=== PATIENT | male | born 1930 | race Caucasian/White ===

== ENCOUNTER 2017-03-04 21:57 | Inpatient (IN) | payer OTHER, MEDICARE ==
--- NOTE | 2017-03-04 22:11 | PDOC ---
History of Present Illness - General Chief Complaint: Pain, Acute Stated Complaint: ABDOMINAL PAIN/HERNIA Time Seen by Provider: 03/04/17 22:00 History Source: Patient Exam Limitations: No Limitations - History of Present Illness Initial Comments: 03/04/17 22:11 This is an 87-year-old male brought in by his daughter for evaluation of abdominal pain. Patient has a history of a left inguinal hernia. Patient said the hernia is normally reducible and when he goes to bed at night it spontaneously reduces however 2 days ago it did not spontaneously reduce and has gotten more painful and uncomfortable. Patient denies any fevers or chills. He denies any nausea vomiting or diarrhea. Patients last bowel movement was today and he said it was normal. PAST MEDICAL HISTORY: Hypertension, high cholesterol, PAST SURGICAL HISTORY: no significant history FAMILY HISTORY: no pertinant history SOCIAL HISTORY: Pt lives alone and is retired MEDICATIONS: reviewed ALLERGIES: As per nursing notes Review of Systems General: No fevers or chills, no weakness, no weight loss HEENT: No change in vision. No sore throat,. No ear pain CardioVascular: No chest pain or shortness of breath Respiratory:No cough, or wheezing. Gastrointestinal: Abdominal pain, hernia Genitourinary: No dysuria, hematuria, or frequency Musculoskeletal: No joint or muscle pain or swelling Neurologic: No headache, vertigo, dizziness or loss of consciousness Psychiatric: nor depression Skin: No rashes or easy bruising Endocrine: no increased thirst or abnormal weight change Allergic: no skin or latex allergy All other systems reviewed and normal Exam: General: Well-nourished well-developed individual, no acute distress HEENT: Throat: Normal, tonsils normal, no erythema or exudate Neck: Supple, no meningeal signs, no lymphadenopathy Eyes::Pupils equal reactive and round, extraocular motion intact Chest: Nontender to palpation Cardiac: S1-S2 normal, regular rate and rhythm, no murmurs rubs or gallops Respiratory: Lungs clear to auscultation bilateral Abdomen: Soft, nondistended, normal bowel sounds, nontender to palpation diffusely There is a large nonreducible tender hernia in the right inguinal area. Extremities: Warm, dry, no cyanosis, clubbing, or edema Skin: No rashes Neuro: Alert and oriented x3, nonfocal exam, grossly intact, normal gait Psych: Normal mood and affect 03/05/17 01:00 Chest x-ray shows pacemaker otherwise no acute pathology Abdominal flat and upright shows some dilated loops of bowel in the right lower quadrant with some air-fluid levels CAT scan shows small bowel obstruction secondary to the umbilical hernia Assessment and plan: This is an 87-year-old male who comes in complaining of abdominal pain and a hernia that is not reducible 2 days. Attempted to reduce the hernia without success Workup shows a small bowel obstruction secondary to the hernia Patient admitted to the hospital hospitalist service as he is a patient of Dr. Perez's. Patient's surgeon is Jamie however Dr. Manzanares was covering. Dr. Barbosa ordered a NG tube however patient refused NG tube Past History - Past Medical History Allergies/Adverse Reactions: Allergies Allergy/AdvReac Type Severity Reaction Status Date / Time No Known Drug Allergies Allergy Verified 03/19/16 08:44 Home Medications: Ambulatory Orders Rosuvastatin Calcium [Crestor] 5 mg PO HS 06/28/14 Apixaban [Eliquis -] 5 mg PO BID tablet 10/20/14 Cyanocobalamin (Vitamin B-12) [Vitamin B-12] 1,000 mcg PO DAILY tablet Enalapril Maleate 5 mg PO DAILY tablet 10/20/14 Cholecalciferol (Vitamin D3) [Vitamin D3] 2,000 unit PO DAILY tablet 09/23/15 Aspirin [Ecotrin] 81 mg PO DAILY 03/04/17 Cancer: (basal cell carcinoma) Cardiac Disorders: Yes (rheumatic fever as a child) CVA: Yes (RT EYE BLIND,OCULAR STROKE) HTN: Yes Hypercholesterolemia: Yes - Surgical History Cardiac Surgery: Yes (triple bypss, 3 stents, pacemaker) - Psycho/Social/Smoking Cessation Hx Anxiety: No Suicidal Ideation: No Smoking Status: Yes Smoking History: Former smoker Have you smoked in the past 12 months: No Number of Cigarettes Smoked Daily: 0 If you are a former smoker, when did you quit?: 40 YEARS AGO Hx Alcohol Use: No Drug/Substance Use Hx: No Substance Use Type: None Hx Substance Use Treatment: No ED Treatment Course - LABORATORY CBC & Chemistry Diagram: 03/04/17 22:13 03/04/17 22:13 *DC/Admit/Observation/Transfer Diagnosis at time of Disposition: Small bowel obstruction, Incarcerated left inguinal hernia - Discharge Dispostion Condition at time of disposition: Stable Admit: Yes
[2017-03-04 22:22] LABS: BASOPHIL 1.4 % (0-2.0); EOSINOPHIL 9.7 % (0-4.5); MEAN CELL VOLUME 91.3 fl (80-96); MEAN PLT VOLUME 8.9 fl (7.5-11.1); NEUTROPHILS 55.4 % (42.8-82.8); PLATELET COUNT 163 K/MM3 (134-434); RDW 14.5 % (11.9-15.9); WHITE BLOOD COUNT 6.5 K/mm3 (4.0-10.8)
[2017-03-04 22:37] LABS: ALBUMIN 3.9 g/dl (3.5-5.0); ALK PHOS 46 U/L (32-92); ANION GAP 8 (8-16); CALCIUM 8.8 mg/dl (8.4-10.2); CO2 24 mmol/L (22-28); CREATININE 0.9 mg/dl (0.6-1.3); GLUCOSE,RANDOM 104 mg/dl (74-106); SGOT/AST 12 U/L (10-42); SGPT/ALT 14 U/L (10-40); TOT PROT 6.6 g/dl (6.4-8.3)
[2017-03-04] MEDS ORDERED: morphine CARPU-JECT 2 MG/1 ML DISP.SYRIN IVPUSH ONE (22:59)
[2017-03-04] MEDS ORDERED: morphine CARPU-JECT 2 MG/1 ML DISP.SYRIN ONE (23:07)
[2017-03-05] MEDS ORDERED: SODIUM CHLORIDE 1,000 ML IV SCH (02:00)
[2017-03-05 02:36] VITALS: BMI 25.7
[2017-03-05 06:26] VITALS: BP 111/60; PULSE 59; TEMP 97.7
--- NOTE | 2017-03-05 08:10 | HP ---
CHIEF COMPLAINT: abdominal pain PCP: Dr Rivera Surgeon: Dr Marie senior credit officer: Dr. Connor HISTORY OF PRESENT ILLNESS: patient is a 87-year-old male with a past medical history of hypertension, hyperlipidemia, coronary artery disease s/p stent, CABG , PPM, A. fib (eliquis), peripheral neuropathy, and right inguinal hernia. Patient patient reports ongoing right lower quadrant abdominal pain for the past several years. Patient reports he has a known history of the inguinal. He was evaluated by general surgeon, Dr. Montiel, in the past year and has declined elective surgery. however patient reports within the past 2 days he developed ongoing right lower quadrant abdominal pain after walking the dog that worsened within the past 12 hours. Patient reports nausea and intolerance to foods, as a result she sought evaluation in the emergency department. ER course was notable for: (1)CT scan abdomen and pelvis with contrast, small bowel obstruction secondary to right inguinal hernia without abscess or free air, chronic pancreatitis without acute inflammation (2) EKG, ventricular paced rhythm rate 60 (3) wBC 6.5 Recent Travel:none PAST MEDICAL HISTORY:see history of present illness PAST SURGICAL HISTORY:see history of present illness Social History: resides at home, retired, Smoking:none Alcohol:none Drugs: none Family History:noncontributory to this admission Allergies No Known Drug Allergies Allergy (Verified 03/19/16 08:44) HOME MEDICATIONS: Home Medications Medication Instructions Recorded Rosuvastatin Calcium [Crestor] 5 mg PO HS 06/28/14 Apixaban [Eliquis -] 5 mg PO BID tablet 10/20/14 Cyanocobalamin (Vitamin B-12) 1,000 mcg PO DAILY tablet 10/20/14 [Vitamin B-12] Enalapril Maleate 5 mg PO DAILY tablet 10/20/14 Cholecalciferol (Vitamin D3) 2,000 unit PO DAILY tablet 09/23/15 [Vitamin D3] Aspirin [Ecotrin] 81 mg PO DAILY 03/04/17 REVIEW OF SYSTEMS CONSTITUTIONAL: Absent: fever, chills, diaphoresis, generalized weakness, malaise, loss of appetite, weight change HEENT: Absent: rhinorrhea, nasal congestion, throat pain, throat swelling, difficulty swallowing, mouth swelling, ear pain, eye pain, visual changes CARDIOVASCULAR: Absent: chest pain, syncope, palpitations, irregular heart rate, lightheadedness , peripheral edema RESPIRATORY: Absent: cough, shortness of breath, dyspnea with exertion, orthopnea, wheezing, stridor, hemoptysis GASTROINTESTINAL: present: Abdominal pain, nausea, vomiting. Absent: abdominal distension, diarrhea, constipation, melena, hematochezia GENITOURINARY: Absent: dysuria, frequency, urgency, hesitancy, hematuria, flank pain, genital pain MUSCULOSKELETAL: Absent: myalgia, arthralgia, joint swelling, back pain, neck pain SKIN: Absent: rash, itching, pallor HEMATOLOGIC/IMMUNOLOGIC: Absent: easy bleeding, easy bruising, lymphadenopathy, frequent infections ENDOCRINE: Absent: unexplained weight gain, unexplained weight loss, heat intolerance, cold intolerance NEUROLOGIC: Absent: headache, focal weakness or paresthesias, dizziness, unsteady gait, seizure, mental status changes, bladder or bowel incontinence PSYCHIATRIC: Absent: anxiety, depression, suicidal or homicidal ideation, hallucinations. PHYSICAL EXAMINATION Vital Signs - 24 hr 03/05/17 03/05/17 03/05/17 02:13 05:48 06:24 Temperature 97.7 F Pulse Rate 59 L Respiratory 18 Rate Blood Pressure 111/60 O2 Sat by Pulse 99 99 Oximetry (%) GENERAL: Awake, alert, and fully oriented, in no acute distress. HEAD: Normal with no signs of trauma. EYES: Pupils equal, round and reactive to light, extraocular movements intact, sclera anicteric, conjunctiva clear. No lid lag. EARS, NOSE, THROAT: Ears normal, nares patent, oropharynx clear without exudates. Moist mucous membranes. NECK: Normal range of motion, supple without lymphadenopathy, JVD, or masses. LUNGS: Breath sounds equal, clear to auscultation bilaterally. No wheezes, and no crackles. No accessory muscle use. HEART: Regular rate and rhythm, normal S1 and S2 without murmur, rub or gallop. ABDOMEN: Soft, nontender, not distended, right inguinal hernia, nontender, easily reducible.normoactive bowel sounds, no guarding, no rebound, no masses. No hepatomegaly or splenomegaly. MUSCULOSKELETAL: Normal range of motion at all joints. No bony deformities or tenderness. No CVA tenderness. UPPER EXTREMITIES: 2+ pulses, warm, well-perfused. No cyanosis. No clubbing. No peripheral edema. LOWER EXTREMITIES: 2+ pulses, warm, well-perfused. No calf tenderness. No peripheral edema. NEUROLOGICAL: Cranial nerves II-XII intact. Normal speech. Normal gait. PSYCHIATRIC: Cooperative. Good eye contact. Appropriate mood and affect. SKIN: Warm, dry, normal turgor, no rashes or lesions noted, normal capillary refill. ASSESSMENT/PLAN: 1) SBO, secondary to right inguinal hernia - CT scan of abdomen and pelvis reviewed, upon physical assessment, right inguinal hernia reduced prior to assessment. Patient is pain-free. - Case discussed with the general surgeon Dr. Cruz at bedside. Patient to start full liquid diet then advance diet tomorrow afternoon, patient is cleared by general surgery, he will require follow-up with general surgery as an outpatient for elective inguinal hernia repair. - close monitoring, serial abdominal exams. 2) cardiology Atrial fibrillation ( paroxysmal) - Patient in normal sinus rhythm, close monitoring. Continue eliquis . Coronary artery disease, S/P stent, CABG - continue Crestor Hypertension - Continue enalapril blood pressure is at goal F/E/N - Full liquid diet then advance as tolerated tomorrow patient to start a soft diet - Replete electrolytes as needed PPX - oob - scd - pt - zantac dispo: patient requires inpatient admission -
--- NOTE | 2017-03-05 08:11 | PN ---
Progress Note (short form) - Note Progress Note: surgery Pt seen and examined. full consult dictated. 87m with multiple medical problems, on eliquis, known rih that refused elective surgery in the past, admitted for incarcerated rih and sbo. unable to be refused in ER. Ngt refused. Pt feels well. on exam easily reducible rih. Plan trial of liquids. if tolerates can d/c home. should reconsider elective repair now hernia is developing complications.
[2017-03-05 09:27] LABS: ACTIVATED PTT 32.1 SECONDS (24.0-38.9); ANION GAP 9 (8-16); CALCIUM 8.6 mg/dl (8.4-10.2); CO2 26 mmol/L (22-28); CREATININE 0.8 mg/dl (0.6-1.3); GLUCOSE,RANDOM 102 mg/dl (74-106)
[2017-03-05 09:30] LABS: MCH 30.3 pg (25.7-33.7); MCHC 32.6 g/dl (32.0-35.9); MEAN PLT VOLUME 9.1 fl (7.5-11.1); PLATELET COUNT 163 K/MM3 (134-434); RDW 14.6 % (11.9-15.9); WHITE BLOOD COUNT 6.4 K/mm3 (4.0-10.8)
[2017-03-05 09:31] LABS: INR 1.22 (0.82-1.09); PROTHROMBIN TIME (PATIENT) 13.6 SEC (10.2-13.0)
[2017-03-05] MEDS ORDERED: RANITIDINE HCL 150 MG TABLET (FP) PO SCH (10:00)
[2017-03-05] MEDS ORDERED: ENALAPRIL MALEATE 5 MG TABLET (FP) PO SCH (10:00)
[2017-03-05] MEDS ORDERED: ASPIRIN COATED 81 MG TABLET.EC PO SCH (10:00)
[2017-03-05] MEDS ORDERED: CHOLECALCIFEROL (VITAMIN D3) 1,000 UNIT TABLET (FP) PO SCH (10:00)
[2017-03-05] MEDS ORDERED: METOPROLOL TARTRATE 25 MG TABLET (FP) PO SCH (10:00)
[2017-03-05] MEDS ORDERED: CYANOCOBALAMIN 1,000 MCG TABLET (FP) PO SCH (10:00)
[2017-03-05] MEDS ORDERED: APIXABAN 5 MG TABLET PO SCH (10:00)
[2017-03-05 10:58] LABS: PH,URINE 5.5 (4.5-8); URINE APPEARANCE Clear; URINE BILIRUBIN Negative (NEGATIVE); URINE BLOOD Trace-lysed (NEGATIVE); URINE GLUCOSE (UA) Negative (NEGATIVE); URINE KETONE Negative (NEGATIVE); URINE LEUK ESTERASE Negative (NEGATIVE); URINE NITRITE Negative (NEGATIVE); URINE PROTEIN Negative (NEGATIVE); URINE UROBILINOGEN 0.2 E.U/dl (0.2-1.0)
[2017-03-05 11:00] LABS: URINE COLOR YELLOW
--- NOTE | 2017-03-05 18:12 | CONS ---
DATE OF CONSULTATION: 03/05/2017 REASON FOR CONSULTATION: Right inguinal hernia incarcerated, small bowel obstruction. This is an emergency room consultation requested by emergency room physician. BRIEF HISTORY: This is an 87-year-old male with multiple medical problems on blood thinner who has a known right inguinal hernia and has refused elective hernia repair in the past. He presented to the [facility] emergency room with pain in his right groin, and stating that his hernia did not reduce. While in the emergency room, he was noted to have a right inguinal hernia, which the emergency room physician was unable to reduce. He had a CAT scan of abdomen and pelvis which is consistent with an incarcerated right inguinal hernia causing a partial bowel obstruction. The official report is not available to me at the time of this consultation. Patient was admitted to the hospital with plans for nasogastric tube decompression. This was refused by the patient according to . However, despite the lack of NG tube, the patient currently feels well, has no pain. He still denies nausea, denies vomiting. He has not had a bowel movement. PAST MEDICAL HISTORY: Consistent with hypertension, hyperlipidemia, and basal cell cancer of skin. HOME MEDICATIONS: Include Eliquis, enalapril, aspirin, and Crestor. PAST SURGICAL HISTORY: Includes basal cell cancer excision. He has had a triple bypass surgery. He has had 3 stents placed in his heart as well, and he has a pacemaker. SOCIAL HISTORY: Significant for quitting tobacco. Negative for alcohol consumption. FAMILY HISTORY: Noncontributory. ALLERGIES: He has no known drug allergies. REVIEW OF SYSTEMS: General: Denies fatigue or malaise. Cardiac: Denies chest pain or palpitations. Respiratory: Denies shortness of breath, wheeze. Gastrointestinal: As stated in HPI. Genitourinary: Denies dysuria. Musculoskeletal: Denies joint pain, joint swelling. Psychiatric: Denies anxiety, depression, or hearing voices. PHYSICAL EXAMINATION: General: This is a well-developed, well-nourished 87-year-old male who looks his stated age. Vital signs: He is afebrile. Vital signs are stable. HEENT: Head is normocephalic. Sclerae anicteric. Neck: Supple. Chest: Clear. Abdomen: Soft. It is nontender. There are no obvious surgical scars. He has a right inguinal hernia which reduced with minimal effort. It is not tender. There is no overlying cellulitic changes. Extremities: Trace edema. LABORATORY: On review of his laboratory, his white blood cell count was 6.5 on admission. There was no shift. His chemistries are unremarkable. ASSESSMENT: This is an 87-year-old male with a right inguinal hernia admitted for incarceration and partial bowel obstruction, which is now reduced. At this point, would give them a trial of liquids. If he tolerates, he can safely be discharged home. The patient should strongly reconsider elective repair. Now that his hernia has become symptomatic and required an emergency room visit and admission, it is more likely to cause problems in the future, and might thus be repaired. I would not recommend emergency repair today, as he is no longer incarcerated, and he is fully anticoagulated and not medically optimized. He can stay on liquids until tomorrow, at which point he can advance his diet. DO SWETHA PAREKH/[id number]
[2017-03-05] MEDS ORDERED: ROSUVASTATIN CA 5 MG TABLET (FP) PO SCH (22:00)
--- NOTE | 2017-03-06 11:42 | EKG ---
Test Reason : Blood Pressure : / mmHG Vent. Rate : 060 BPM Atrial Rate : 061 BPM P-R Int : 000 ms QRS Dur : 184 ms QT Int : 494 ms P-R-T Axes : 000 -80 073 degrees QTc Int : 494 ms Ventricular-paced rhythm ABNORMAL ECG WHEN COMPARED WITH ECG OF 29-JUN-2014 08:24, NO SIGNIFICANT CHANGE WAS FOUND Confirmed by CHARMAINE VALERO MD ([id number]) on 03/06/2017 11:42:11 AM Referred By: MD MONTELONGO Confirmed By:CHARMAINE VALERO MD
== END 2017-03-05 12:45 | disposition home or self-care (01) | DRG 394 ==
LOC: FER 21:57 → FM/S 03-05 01:51
PROVIDERS: ADMIT Internal Medicine; ATTEND Nurse Practitioner Family
DX: K40.30 Unilateral inguinal hernia, with obstruction, without gangrene, not specified as recurrent (principal); K86.1 Other chronic pancreatitis; I10 Essential (primary) hypertension; E78.00 Pure hypercholesterolemia, unspecified; I25.10 Atherosclerotic heart disease of native coronary artery without angina pectoris; I48.0 Paroxysmal atrial fibrillation; G62.9 Polyneuropathy, unspecified; Z95.0 Presence of cardiac pacemaker; Z95.1 Presence of aortocoronary bypass graft; Z95.5 Presence of coronary angioplasty implant and graft
CPT/HCPCS: 36415; 71010-TC; 74020-TC; 74177-TC; 80048; 80053; 81003; 83690; 83735; 85025; 85027; 85610; 85730; 86850; 86900; 86901; 93005; 99282-25

== ENCOUNTER 2017-04-06 06:12 | Day surgery (SDC) | payer OTHER, MEDICARE ==
[2017-04-05 12:11] VITALS: BMI 26.0
[2017-04-06] MEDS ORDERED: TAMSULOSIN HCL 0.4 MG CAP.ER.24H (FP) ONE (06:38)
[2017-04-06 07:20] VITALS: PULSE 60
[2017-04-06] MEDS ORDERED: MIDAZOLAM HCL 2 MG/2 ML SINGLE DOSE VIAL ONE (07:38)
[2017-04-06] MEDS ORDERED: ROCURONIUM BROMIDE 50 MG/5 ML VIAL ONE (07:38)
[2017-04-06] MEDS ORDERED: PROPOFOL 20 ML ONE ×2 (07:38)
[2017-04-06] MEDS ORDERED: SUCCINYLCHOLINE CHLORIDE 200 MG/10 ML VIAL ONE (07:38)
[2017-04-06] MEDS ORDERED: BUPIVACAINE HCL/PF 2.5 MG/ML - 30 ML VIAL IJ ONE (07:41)
[2017-04-06] MEDS ORDERED: LIDOCAINE HCL 1%, 10 MG/ML (20ML VIAL) ONE (07:41)
[2017-04-06] MEDS ORDERED: LIDOCAINE 1%/EPI 1:100000 (20 ML MULTI DOSE VIAL) ONE (07:42)
[2017-04-06] MEDS ORDERED: BUPIVACAINE HCL/PF 0.5% (5MG/ML) 10 ML VIAL ONE (07:42)
[2017-04-06] MEDS ORDERED: PHENYLEPHRINE HCL 10 MG/1 ML SINGLE DOSE VIAL ONE (08:43)
[2017-04-06] MEDS ORDERED: ceFAZolin SODIUM 1 GM VIAL ONE ×3 (08:44→08:48)
[2017-04-06] MEDS ORDERED: ONDANSETRON 4 MG/2 ML VIAL ONE (08:49)
[2017-04-06] MEDS ORDERED: DEXAMETHASONE SOD PHOSPHATE 4 MG/1 ML VIAL ONE (08:49)
[2017-04-06] MEDS ORDERED: METRONIDAZOLE 500 MG PREMIXED 100 ML IVPB ONE (08:51)
[2017-04-06] MEDS ORDERED: BUPIVACAINE HCL/PF (5 MG/ML) 30 ML VIAL IJ ONE (10:08)
[2017-04-06] MEDS ORDERED: LACTATED RINGERS SOLUTION 1,000 ML IV SCH (10:30)
[2017-04-06] MEDS ORDERED: ONDANSETRON 4 MG/2 ML VIAL IVPUSH PRN (10:49)
[2017-04-06 14:36] VITALS: TEMP 97.6
[2017-04-06 17:41] VITALS: BP 100/54
--- NOTE | 2017-04-07 10:50 | OP ---
DATE OF OPERATION: 04/06/2017 PREOPERATIVE DIAGNOSIS: Incarcerated right inguinal hernia. POSTOPERATIVE DIAGNOSIS: Incarcerated right inguinal hernia. PROCEDURE: Reduction and repair of chronically incarcerated right inguinal hernia with mesh/intermediate wound closure (8 cm). OPERATING SURGEON: Konrad Ayala MD PLANE TENDER: Isiah Cruz DO ANESTHESIA: General, Aziza Ellsworth MD HISTORY: An 87-year-old man with multiple medical issues, who presented with small-bowel obstruction secondary to a chronic incarceration of his right inguinal hernia. Decision ultimately made to proceed with definitive management in terms of reduction and repair. Indications, alternatives, and possible complications reviewed. Consent obtained. DESCRIPTION OF PROCEDURE: With the patient in the supine position and after spinal anesthesia, the right groin was prepped and draped in sterile fashion using chlorhexidine. An 8-cm right groin incision was made between the right pubic tubercle and the right anterior iliac spine. The incision was deepened into the subcutaneous space. All identified vessels in the subcutaneous space were clamped, divided, and ligated. The external oblique aponeurosis was identified. It was incised in the direction of its fibers through the external ring. The ilioinguinal nerve was identified and spared. The undersurface of the split, external oblique aponeurosis points was swept clean to the level of the pubic tubercle where the cord, sac, and contents were mobilized and encircled with a [place] drain. Cord was skeletonized of its cremasteric fibers. The large inguinal scrotal sac was mobilized to the level of the preperitoneal fat and inferior epigastric vessels at the internal ring. The portion of the wall of the sac was made up of intra-abdominal fat. The entire sac and all its contents were ultimately reduced. The transversalis fascia was then split throughout its entire length. The preperitoneal tissues were further reduced, and a Davol plug placed in the preperitoneal space. It was fashioned circumferentially with interrupted 2-0 Prolene sutures. The transversalis fascia was then imbricated in 2 layers over the Davol plug, reconstituting the internal ring to permit only fingertip entrance. Ultimately , an overlay patch was placed over the transversalis and fashioned circumferentially with interrupted 2-0 Prolene sutures. The superior keyhole portion of the patch was wrapped around the cord, reconstructing the internal ring and fixed in place. The cord and ilioinguinal nerve were then returned to their anatomic positions. The overlying external oblique aponeurosis was closed in a continuous fashion using 3-0 Vicryl suture. After adequate hemostasis, the wound was closed in layers. Constantine fascia was approximated using interrupted 3-0 Vicryl sutures. The subcutaneous tissues were approximated with interrupted 3-0 chromic sutures. The skin edges were approximated using 4-0 Biosyn in the subcuticular space in continuous fashion. Prior to complete closure of the wound, 20 mL of 0.5% Marcaine was freely instilled in the wound. Dermabond applied. Procedure terminated. NEEDLE AND INSTRUMENT COUNT: Correct. ESTIMATED BLOOD LOSS: Minimal. SPECIMEN: None. DRAINS: None. IMPLANT: Mesh plug. Patient tolerated the procedure. The procedure was terminated. KONRAD AYALA M.D. [id number] cc: Ciaran Rivera MD MTDD
== END 2017-04-06 17:20 | disposition home or self-care (01) ==
LOC: FASU 06:12
PROVIDERS: ATTEND Surgery
PROC: 0YU50JZ Supplement Right Inguinal Region with Synthetic Substitute, Open Approach (ICD-10-PCS; principal; 2017-04-06 09:02)
DX: K40.30 Unilateral inguinal hernia, with obstruction, without gangrene, not specified as recurrent (principal)
CPT/HCPCS: 94760

== ENCOUNTER 2019-01-08 17:55 | Emergency (ER) | payer OTHER, MEDICARE ==
[2019-01-08 18:13] VITALS: BP 138/70; PULSE 60; TEMP 97.8; BMI 28.5
--- NOTE | 2019-01-08 18:39 | PDOC ---
History of Present Illness - General Chief Complaint: Pain Stated Complaint: RIGHT ARM PAIN Time Seen by Provider: 01/08/19 18:08 History Source: Patient Exam Limitations: No Limitations - History of Present Illness Initial Comments: 88 yo M with a hx of CAD (s/p CABG), ocular CVA (with right sided blindness), pacemaker, HLD, and HTN presents to the emergency department with shoulder pain of unknown laterality per the patient. Per the daughter at bedside, the patient was at home today at rest when he began experiencing upper extremity pain. The patient is unsure of the quality, location, severity, and duration of the pain. Currently, he is pain free. Per the patient and the daughter, they have been concerned about his pacemaker since it has not been checked by the company after a formal request was made by them to the company. The patient can ambulate with the use of a walker/cane, but with difficulty (at baseline). The patient's mentation is at baseline per the daughter. Denies the following: fever , chills, SOB, nausea, vomiting, abdominal pain, headaches, visual changes, lightheadedness, dysuria, hematuria, and diarrhea. No leg pain/swelling. Social: Denies tobacco, alcohol, and substance abuse. PMD: Dr. Rivera Power Hammer Operator: Dr. Todd Past History - Past Medical History Allergies/Adverse Reactions: Allergies Allergy/AdvReac Type Severity Reaction Status Date / Time No Known Drug Allergies Allergy Verified 04/06/17 07:31 Home Medications: Ambulatory Orders Rosuvastatin Calcium [Crestor] 5 mg PO HS 06/28/14 Apixaban [Eliquis -] 5 mg PO BID tablet 10/20/14 Cyanocobalamin (Vitamin B-12) [Vitamin B-12] 1,000 mcg PO DAILY tablet Enalapril Maleate 5 mg PO DAILY tablet 10/20/14 Cholecalciferol (Vitamin D3) [Vitamin D3] 2,000 unit PO DAILY tablet 09/23/15 Metoprolol Tartrate 12.5 mg PO BID 04/05/17 Aspirin [Ecotrin] 81 mg PO DAILY 02/17/18 Anemia: No Asthma: No Cancer: Yes (basal cell carcinoma) Cardiac Disorders: Yes (rheumatic fever as a child) CVA: Yes (RT EYE BLIND,OCULAR STROKE) COPD: No CHF: No (CAD,s/p [place] 2 yrs ago) Dementia: No (forgetful) Diabetes: No GI Disorders: No Disorders: No HTN: Yes Hypercholesterolemia: Yes Liver Disease: No Seizures: No Thyroid Disease: No - Surgical History Abdominal Surgery: No Appendectomy: No Cardiac Surgery: Yes (triple bypss, 3 stents, pacemaker) Cholecystectomy: No Lung Surgery: No Neurologic Surgery: No Orthopedic Surgery: No - Suicide/Smoking/Psychosocial Hx Smoking Status: Yes Smoking History: Former smoker Have you smoked in the past 12 months: No Number of Cigarettes Smoked Daily: 0 If you are a former smoker, when did you quit?: 30 YEARS Information on smoking cessation initiated: No Hx Alcohol Use: No Drug/Substance Use Hx: No Substance Use Type: None Hx Substance Use Treatment: No Review of Systems - Review of Systems Able to Perform ROS?: Yes Is the patient limited [place]er proficient: No Constitutional: No: Chills, Diaphoresis, Fever HEENTM: No: Eye Pain, Recent change in vision, Ear Pain, Nose Pain, Throat Pain , Mouth Pain Respiratory: No: Cough, Shortness of Breath, Wheezing, Hemoptysis Cardiac (ROS): No: Chest Pain, Irregular Heart Rate, Lightheadedness, Palpitations ABD/GI: No: Constipated, Diarrhea, Nausea, Poor Fluid Intake, Rectal Bleeding, Vomiting, Abdominal cramping, Tarry Stools : No: Burning, Dysuria, Flank Pain, Hematuria, Incontinence Musculoskeletal: No: Back Pain, Joint Pain, Neck Pain Integumentary: No: Bruising, Erythema, Rash Neurological: No: Headache, Numbness, Tingling, Tremors, Dizziness Psychiatric: No: Stressors Endocrine: No: Unexplained Weight Gain Hematologic/Lymphatic: No: Anemia *Physical Exam - Vital Signs Last Vital Signs Temp Pulse Resp BP Pulse Ox 97.8 F 60 18 138/70 100 01/08/19 17:57 01/08/19 17:57 01/08/19 17:57 01/08/19 17:57 01/08/19 17:57 - Physical Exam General Appearance: Yes: Nourished, Appropriately Dressed. No: Apparent Distress, Intoxicated HEENT: positive: EOMI, YADIRA, Normal Voice, Symmetrical, Pharynx Normal, Hearing Grossly Normal. negative: Pale Conjunctivae, Scleral Icterus (R), Scleral Icterus (L), Muffled/Hoarse voice, Pharyngeal Erythema, Tonsillar Exudate, Tonsillar Erythema, Nasal Congestion, Rhinorrhea, Excessive drooling Neck: positive: Trachea midline, Supple. negative: Tender, Lymphadenopathy (R) , Lymphadenopathy (L), Tender lateral, Tender midline Respiratory/Chest: positive: Lungs Clear, Normal Breath Sounds. negative: Chest Tender, Respiratory Distress, Accessory Muscle Use, Rales, Rhonchi, Stridor, Wheezing Cardiovascular: positive: Regular Rhythm, Regular Rate, S1, S2. negative: Systolic Murmur Gastrointestinal/Abdominal: positive: Normal Bowel Sounds, Flat, Soft. negative : Tender, Distended, Guarding, Rebound Lymphatic: negative: Adenopathy Musculoskeletal: positive: Normal Inspection. negative: CVA Tenderness, Vertebral Tenderness Extremity: positive: Normal Capillary Refill, Normal Inspection, Normal Range of Motion. negative: Tender, Other Integumentary: positive: Normal Color, Dry, Warm Neurologic: positive: Alert, Normal Mood/Affect Medical Decision Making - Medical Decision Making 01/08/19 18:48 88 yo M with a hx of CAD (s/p CABG), ocular CVA (with right sided blindness), pacemaker, HLD, and HTN presents to the emergency department with shoulder pain of unknown laterality per the patient. Initial vitals: Initial Vital Signs Temp Pulse Resp BP Pulse Ox 97.8 F 60 18 138/70 100 01/08/19 17:57 01/08/19 17:57 01/08/19 17:57 01/08/19 17:57 01/08/19 17:57 Work up: patient is currently asymptomatic and feels fine. The patient's daughter states he is at baseline. The patient was placed on the court recording monitor that shows pacemaker firing appropriately with appropriate regularity. Patient feels well and wants to follow up with his PMD for scheduling follow up with the pacemaker company. Dispo: Discharge *DC/Admit/Observation/Transfer Diagnosis at time of Disposition: Extremity pain Qualifiers: Extremity pain location: upper extremity Laterality: unspecified laterality Qualified Code(s): M79.603 - Pain in arm, unspecified - Discharge Dispostion Disposition: HOME Condition at time of disposition: Stable Decision to Admit order: No - Referrals Referrals: Ciaran Rivera MD [Primary Care Provider] - Morgan Hooker MD [Staff Physician] - - Patient Instructions Additional Instructions: You were seen in the emergency department for the evaluation of your upper extremity pain. Your symptoms resolved prior to your arrival to the emergency department. we placed you on the court recording monitor which shows your pacemaker working properly. please follow up with Dr. Rivera within 3 days after discharge for follow up care and management. in addition, i placed a referral to Dr. Hooker for cardiac follow up care. please call his office within 3 days for follow up care. please return to the emergency department if you have a recurrence of pain or new concerning symptoms. thank you. - Post Discharge Activity
--- NOTE | 2019-01-08 18:59 | PDOC ---
Documentation entered by Kaity Santos SCRIBE, acting as scribe for Marilyn Hartley MD. Marilyn Hartley MD: This documentation has been prepared by the Danielle cleveland Xhesika, SCRIBE, under my direction and personally reviewed by me in its entirety. I confirm that the documentation accurately reflects all work, treatment, procedures, and medical decision making performed by me. Attending Attestation - Resident Resident Name: Heri Yin - ED Attending Attestation I have performed the following: I have examined & evaluated the patient, The case was reviewed & discussed with the resident, I agree w/resident's findings & plan, Exceptions are as noted - HPI HPI: 01/08/19 18:37 The patient is a 88 year old male, accompanied by his daughter, with a significant past medical history of CAD (s/pCABG), ocular CVA (right-sided blindness/2012), pacemaker, HTN, HLD presents with shoulder pain of unknown laterally per patient. As per daughter the patient was sitting at home on the couch at the onset of his shoulder pain, however, the patient is mildly confused , denies any shoulder pain, but is now worried about his pacemaker. The patient states his pacemaker has not been checked by the company for the last several months. As per daughter, the patient is able to ambulate with difficulty using his walker/ cane. The patient denies any chest pain or SOB at this time. The patient denies chest pain, shortness of breath, headache or dizziness. The patient denies fever, chills, nausea, vomit, diarrhea or constipation. The patient denies dysuria, frequency, urgency or hematuria. Allergies:NKDA Past surgical history:triple bypass, 3 stents, pacemaker Social history: None reported PCP: Ciaran John Contact Lens Edge Buffer: Dashawn Daigle - Physicial Exam PE: 01/08/19 18:37 GENERAL:(+) Mildly confused. Awake, alert, and fully oriented, in no acute distress HEAD: No signs of trauma LUNGS: Breath sounds equal, clear to auscultation bilaterally. No wheezes, and no crackles HEART: Regular rate and rhythm, normal S1 and S2, no murmurs, rubs or gallops ABDOMEN: Soft, nontender, normoactive bowel sounds. No guarding, no rebound. No masses EXTREMITIES: Normal range of motion, no edema. No clubbing or cyanosis. No cords, erythema, or tenderness NEUROLOGICAL: Cranial nerves II through XII grossly intact. Normal speech, - Medical Decision Making Patient will follow with Dr Rivera to help having the pacemaker checked 01/08/19 18:58
== END 2019-01-08 19:02 | disposition home or self-care (01) ==
LOC: FER 17:55
DX: M79.601 Pain in right arm (principal); I10 Essential (primary) hypertension; E78.5 Hyperlipidemia, unspecified; Z95.1 Presence of aortocoronary bypass graft; I25.10 Atherosclerotic heart disease of native coronary artery without angina pectoris; Z87.891 Personal history of nicotine dependence; I25.2 Old myocardial infarction; E78.00 Pure hypercholesterolemia, unspecified; Z95.5 Presence of coronary angioplasty implant and graft; Z95.0 Presence of cardiac pacemaker
CPT/HCPCS: 99282-25